=== PATIENT | female | born 1960 | race Caucasian/White ===

== ENCOUNTER → 2017-04-08 | Outpatient (CLI) | payer OTHER ==
[~2017-04-08] MED LIST: ABILIFY2 MG PO; ADVAIR 250-501 EACH IH; ALEVE220 MG PO; ALPRAZOLAM1 MG PO; ALPRAZOLAM2 MG PO; ASPIR-TRIN325 M1 PO; ASPIRIN81 M1 PO; Aldactone PO; Ambien PO; BREO ELLIPTA 21 EACH IH; CARVEDILOL12.5 MG PO; CARVEDILOL3.125 MG PO; CITALOPRAM HBR20 M1 PO; CITALOPRAM HBR40 MG PO; CLONAZEPAM1 MG PO; COMBIVENT200 INHALA IH; Celexa PO; Combivent IH; Coreg PO; DURAGESIC75 MCG TD; ENDOCET 10-6501 EACH PO; FENTANYL1 EAC2 TD; ISORDIL10 MG PO; KLONOPIN1 MG PO; KLONOPIN2 MG PO; LASIX40 MG PO; LASIX80 MG PO; LEVOFLOXACIN500 MG; LEVOTHROID,SYN0.1 MG PO; LEVOTHYROXINE100 MCG PO; LISINOPRIL2.5 MG PO; Levothroid,Synthroid PO; MOTRIN800 MG PO; NITROSTAT0.4 MG SL; OXYCODONE HCL15 MG PO; OXYCODONE HCL30 MG PO; OxyCODONE PO; PREDNISONE50 MG PO; PRILOSEC20 MG PO; PRINIVIL5 MG PO; PROAIR HFA8.5 GM IH; SIMVASTATIN20 MG PO; SPIRIVA1 INHALATI IH; SPIRONOLACTONE25 MG PO; TRILAFON8 M1 PO; TRILAFON8 MG PO; XANAX PO; Xanax PO; ZANTAC150 MG PO; ZESTRIL,PRINIV2.5 MG PO; ZOCOR40 MG PO; ZOLPIDEM TARTRA10 MG PO; ZYRTEC10 M1 PO; Zestril,Prinivil PO; Zocor PO; [UNRECOGNIZED DRUG - OTHER] PO
== END | disposition home or self-care (01) ==
LOC: RAD 13:28
PROC: 0W9G3ZZ Drainage of Peritoneal Cavity, Percutaneous Approach (ICD-10-PCS; principal; 2017-04-08)
DX: R18.8 Other ascites (principal)
CPT/HCPCS: 49083

== ENCOUNTER 2017-05-16 18:30 | Emergency (ER) | payer OTHER ==
[~2017-05-16] VITALS: Ht 160 cm; Wt 99.0 kg
[~2017-05-16 18:30] MED LIST changes: +BENADRYL50 MG PO; +DEXAMETHASONE4 MG PO
[2017-05-16] MEDS ORDERED: MOTRIN600 MG PO (20:34)
[2017-05-16] MEDS ORDERED: FLEXERIL10 MG PO (20:34)
[2017-05-16] MEDS ORDERED: KEFLEX500 MG PO ×2 (20:42→20:44)
[2017-05-16 20:58] VITALS: BP 92/62
== END 2017-05-16 20:58 | disposition home or self-care (01) ==
LOC: EME 18:30
DX: I80.8 Phlebitis and thrombophlebitis of other sites (principal); I10 Essential (primary) hypertension; J44.9 Chronic obstructive pulmonary disease, unspecified; I25.2 Old myocardial infarction; F32.9 Major depressive disorder, single episode, unspecified; F41.9 Anxiety disorder, unspecified; F17.200 Nicotine dependence, unspecified, uncomplicated; Z79.82 Long term (current) use of aspirin; Z79.891 Long term (current) use of opiate analgesic; Z95.1 Presence of aortocoronary bypass graft; Z85.43 Personal history of malignant neoplasm of ovary; Z92.21 Personal history of antineoplastic chemotherapy
CPT/HCPCS: 99281; 99283

== ENCOUNTER → 2017-09-28 | Outpatient (CLI) | payer OTHER ==
[~2017-09-28] MED LIST changes: +BACITRACIN-P28.35 GM TP; +COMPAZINE10 MG PO; +CONSTULOSE10 GM/15 M PO; +FLEXERIL10 MG PO; +KEFLEX500 MG PO; +KLOR-CON SPRIN10 MEQ PO; +MARINOL5 MG PO; +MOTRIN600 MG PO; +MS CONTIN,ORAMO30 MG PO; +MS CONTIN,ORAMO60 MG PO; +PREDNISONE20 MG PO; +PROMETHAZINE HC25 M1 PO; +PROTONIX40 MG PO; +PROZAC20 MG PO; +ZOFRAN4 MG PO; +[UNRECOGNIZED DRUG - OTHER] PO
== END | disposition home or self-care (01) ==
LOC: RAD 13:15
PROC: 0W9G3ZZ Drainage of Peritoneal Cavity, Percutaneous Approach (ICD-10-PCS; principal; 2017-09-28)
DX: R18.0 Malignant ascites (principal); C56.2 Malignant neoplasm of left ovary
CPT/HCPCS: 49083

== ENCOUNTER → 2017-11-23 | Outpatient (CLI) | payer OTHER | END | disposition home or self-care (01) | LOC: RAD 13:05 | PROC: 0W9G3ZZ Drainage of Peritoneal Cavity, Percutaneous Approach (ICD-10-PCS; principal; 2017-11-23) | DX: R18.8 Other ascites (principal); C78.6 Secondary malignant neoplasm of retroperitoneum and peritoneum; C56.2 Malignant neoplasm of left ovary | CPT/HCPCS: 49083 ==

== ENCOUNTER 2017-12-04 06:15 | Day surgery (SDC) | payer OTHER ==
[~2017-12-04] VITALS: Ht 160 cm; Wt 80.9 kg
[~2017-12-04 06:15] MED LIST changes: +AVASTIN400 MG/16 IV; +PACLITAXEL6 MG/1 ML IV
[2017-12-04 06:36] VITALS: BP 102/59
== END 2017-12-04 11:45 | disposition home or self-care (01) ==
LOC: SDC 06:15 → 2EAST 06:16 → SDC 09:55 → 2EAST 11:45
PROVIDERS: Surgery
DX: I87.8 Other specified disorders of veins (principal); C56.9 Malignant neoplasm of unspecified ovary; C77.2 Secondary and unspecified malignant neoplasm of intra-abdominal lymph nodes; R18.0 Malignant ascites; F17.200 Nicotine dependence, unspecified, uncomplicated; Z92.21 Personal history of antineoplastic chemotherapy
CPT/HCPCS: 71045; 82948; 93005; C1751; C1769; G0378; J0690; J2250; J2405; J3010; J7120